=== PATIENT | female | born 1945 | race Caucasian/White ===

== ENCOUNTER 2020-06-09 17:14 | Inpatient (IN) | payer MEDICARE, OTHER, SELFPAY ==
[2020-06-09 17:24] VITALS: BP 137/76; PULSE 85; RESP 18; TEMP 36.7; O2SAT 98; BMI 25.0
--- NOTE | 2020-06-09 18:07 | DI.RAD.S_ITS ---
PROCEDURE: XR FOREARM RT 2V INDICATIONS: cat bite TECHNIQUE: 2 views of the forearm were acquired. COMPARISON: None. FINDINGS: Bones: No fractures or dislocations. No suspicious bony lesions. Soft tissues: No suspicious soft tissue calcifications or masses. IMPRESSION: No forearm fracture or dislocation. No radiopaque foreign body is seen. Dictated by: Ramiro Zamarripa M.D. on 06/09/2020 at 17:32 Approved by: Ramiro Zamarripa M.D. on 06/09/2020 at 17:33
[2020-06-09] MEDS: TET,DIPH,PERTUSS(ACELL),VAC/PF 0.5 ML SYRINGE IM (18:20)
[2020-06-09 18:36] LABS: Add Manual Diff / Slide Review NO; Basophils Absolute Auto 100 /uL (0-100); Basophils Percent Auto 0.7 % (0-2); Eosinophils Absolute Auto 0 /uL (0-450); Eosinophils Percent Auto 0.3 % (2-4); Hematocrit 38.8 % (36-46); Hemoglobin 13.2 g/dL (12.0-16.0); Lymphocytes Absolute Auto 1900 /uL (1100-4500); Lymphocytes Percent Auto 14.4 % (25-40); Mean Corpuscular HGB Conc 34.1 % (30-36); Mean Corpuscular Hemoglobin 31.6 PG (26-34); Mean Corpuscular Volume 92.9 fL (80-100); Monocytes Absolute Auto 1000 /uL (0-900); Monocytes Percent Auto 7.4 % (3-14); Neutrophils Absolute Auto 10300 /uL (1500-7000); Neutrophils Percent Auto 77.2 % (50-75); Platelet Count 177 X10^3/uL (150-400); Red Blood Cell Count 4.18 X10^6/uL (4.0-5.2); Red Cell Distribution Width 12.9 % (11.6-14.8); White Blood Cell Count 13.3 X10^3/uL (4.5-11.0)
[2020-06-09 18:52] LABS: Alanine Aminotransferase 31 IU/L (<35); Albumin 4.4 g/dL (3.5-5.0); Albumin Globulin Ratio 1.3 (1.0-2.8); Alkaline Phosphatase 83 U/L (38-126); Aspartate Aminotransferase 37 IU/L (14-36); BUN Creatinine Ratio 25.3 (6-22); Bilirubin Total 0.9 mg/dL (0.2-1.3); Blood Urea Nitrogen 19 mg/dL (7-17); Calcium 9.3 mg/dL (8.4-10.2); Carbon Dioxide 26 mmol/L (22-32); Chloride 101 mmol/L (98-107); Estimated Glomerular Filt Rate > 60.0 mL/min (>60); Globulin 3.5 g/dL (1.7-4.1); Glucose 103 mg/dL (80-110); HEMOLYSIS < 15 (0-50); Potassium 3.5 mmol/L (3.4-5.1); Sodium 135 mmol/L (137-145); Total Protein 7.9 g/dL (6.3-8.2)
[2020-06-09 18:54] LABS: Lactate (Lactic Acid) 0.6 mmol/L (0.7-2.1)
[2020-06-09] MEDS: SODIUM CHLORIDE 0.9% 1,000 ML 1000 ML IV (19:02)
[2020-06-09] MEDS: ONDANSETRON 4 MG/2 ML INJ IV (19:03)
[2020-06-09] MEDS: PIPERACILLIN-TAZO 3.375 GM/50 ML FROZ.PIGGY IV (19:03)
[2020-06-09] MEDS: KETOROLAC 60 MG/2 ML VIAL 30 MG IV (19:03)
--- NOTE | 2020-06-09 19:03 | PM.CN ---
History of Present Illness Consult details Date Patient Seen: 06/09/20 Time Patient Seen: 19:03 Chief complaint: lt hand infection from cat bite Reason for consult: left forearm cat bite Narrative: Patient is a 74-year-old female who was out her cabin in the [facility] when a cat bit her left forearm. She initially did not think much of it however after dinner yesterday she started having increasing pain and some erythema. This morning she woke up with quite a lot of erythema over the ulnar aspect of her forearm extending from her wrist to her elbow. She also notes decreased strength in her arm and pain with passive range of motion in the wrist and elbow. She denies any nausea vomiting fevers chills. Meds Home Medications and Allergies Home Medications Medication Instructions Recorded Confirmed Type No Known Home Medications 06/09/20 06/09/20 History Allergies Allergy/AdvReac Type Severity Reaction Status Date / Time No Known Drug Allergies Allergy Verified 06/09/20 17:26 Exam Vital Signs (past 8 hours): - 06/09/20 17:24 Temperature 98.1 F Pulse Rate 85 Respiratory Rate 18 Blood Pressure 137/76 Pulse Oximetry 98 Oxygen Delivery Method Room Air Narrative Exam Narrative: Three puncture wounds over the ulnar aspect of the left forearm. No drainage at this time. There is marked erythema over the ulnar aspect of her entire forearm extending from her wrist to her elbow. Tenderness to palpation. No fluctuance no active drainage. She does have some pain with extremes range of motion on the elbow and wrist however passive range of motion in a 45 degree arc of range of motion provides no increased pain. Objective Labs Result Diagrams: 06/09/20 18:15 06/09/20 18:15 Labs: Laboratory Results - last 24 hr 06/09/20 06/09/20 06/09/20 18:15 18:15 18:15 WBC 13.3 H RBC 4.18 Hgb 13.2 Hct 38.8 MCV 92.9 MCH 31.6 MCHC 34.1 RDW 12.9 Plt Count 177 Neut % (Auto) 77.2 H Lymph % (Auto) 14.4 L [place] % (Auto) 7.4 Eos % (Auto) 0.3 L Baso % (Auto) 0.7 Neut # (Auto) 72254 H Lymph # (Auto) 1900 [place] # (Auto) 1000 H Eos # (Auto) 0 Baso # (Auto) 100 Sodium 135 L Potassium 3.5 Chloride 101 Carbon Dioxide 26 BUN 19 H Creatinine 0.75 Estimated GFR > 60.0 BUN/Creatinine Ratio 25.3 H Glucose 103 Lactate 0.6 L Calcium 9.3 Total Bilirubin 0.9 AST 37 H ALT 31 Alkaline Phosphatase 83 Total Protein 7.9 Albumin 4.4 Globulin 3.5 Albumin/Globulin Ratio 1.3 Assessment & Plan Assessment & Plan narrative: Patient is a 74-year-old female with cellulitis related to a cat bite sustained more than 24 hours ago. She did not appear to have any sepsis within the tendon sheaths or in the joints themselves. She does have evolving celluliti. Patient will require admission for IV antibiotics and observation. Admit to Internal Medicine. Orthopedics will follow along. NPO after midnight Elevate left forearm with hylton sling Limit use of left forearm and wrist for soft tissue rest Augment abx - Consider IV Zosyn in addition Time Spent With Patient Time with patient: 25 - 35 minutes
[2020-06-09 19:08] LABS: Procalcitonin 0.17 ng/mL (<0.5)
[2020-06-09] MEDS: AMOXICILLIN/CLAV 875/125 MG 1 TAB PO (20:06)
[2020-06-09 20:45] LABS: COVID19 -Nasal RAPID Negative (Negative)
--- NOTE | 2020-06-09 20:48 | ED.SKABFB ---
HPI - Skin/Abscess/Foreign Bdy <INDIA Rodriguez - Last Filed: 06/09/20 21:02> General Chief complaint: Skin/Abscess/Foreign Body Stated complaint: lt hand infection from cat bite Time Seen by Provider: 06/09/20 17:59 Source: patient Mode of arrival: Ambulatory Limitations: no limitations History of Present Illness HPI narrative: The patient is a 74-year-old female nonsmoker with history of hysterectomy diverticulitis who presents with a chief complaint of a cat bite to her left forearm. This happened yesterday approximately 10:00 a.m. 1 of the [facility]. She does not know when her last tetanus was. She states her cat was fully vaccinated. She states that she noticed extending redness last night had pain above her shoulder this morning. She denies any fevers nausea vomiting or diarrhea, but does complain of malaise, muscle aches chills and general not feeling well. She is concerned about/infection andblood poisoning. She has not taken anything to feel better other than [id number] pain medications including 200 mg of ibuprofen this morning Related Data Home Medications Medication Instructions Recorded Confirmed No Known Home Medications 06/09/20 06/09/20 Allergies Allergy/AdvReac Type Severity Reaction Status Date / Time No Known Drug Allergies Allergy Verified 06/09/20 17:26 Review of Systems <INDIA Rodriguez - Last Filed: 06/09/20 21:02> Review of Systems Narrative: GENERAL: Denies chills, fatigue, malaise, fever, sweats. HEENT: Denies sinus pain, ear pain, sore throat, difficulty swallowing, dizziness. RESPIRATORY: Denies dyspnea, cough, wheezing, hemoptysis, sputum. CARDIOVASCULAR: Denies chest pain, palpitations, orthopnea, edema, GASTROINTESTINAL: Denies nausea, vomiting, abdominal pain, diarrhea, constipation, melena. : Denies dysuria, frequency, incontinence, hematuria, urinary retention. MUSCULOSKELETAL: See HPI SKIN: See HPI NEUROLOGIC: Denies weakness, headache, numbness, change in speech, confusion, seizures, incoordination. PSYCHIATRIC: No concerning psychosocial issues. 12 point review of systems is negative except for those stated above Patient History <INDIA Rodriguez - Last Filed: 06/09/20 21:02> Surgical History History of hysterectomy (Acute) History of vein stripping (Acute) Family History Father Myocardial infarction Mother Natural with unknown cause Social History Smoking Status: Never smoker Smoking Status: Never smoker alcohol intake frequency: 0-2 drinks per day Substance Use Type: does not use Exam <MAUREEN Rodriguez-BC - Last Filed: 06/09/20 21:02> Narrative Exam Narrative: GENERAL: This is a well-nourished, well-developed patient, in no acute distress HEAD: Atraumatic. Normocephalic. No temporal or scalp tenderness. EYES: Pupils equal round and reactive. Extraocular motions intact. No scleral icterus. No injection or drainage. ENT: Nose without bleeding, purulent drainage or septal hematoma. Throat without erythema, tonsillar hypertrophy or exudate. Uvula midline. Airway patent. NECK: Trachea midline. No JVD or lymphadenopathy. Supple, nontender, no meningeal signs. CARDIOVASCULAR: Regular rate and rhythm RESPIRATORY: Clear to auscultation. Breath sounds equal bilaterally. No wheezes, rales, or rhonchi. No cough. No increased respiratory effort. No accessory muscle use. GASTROINTESTINAL: Abdomen soft, non-tender, nondistended. No hepato-splenomegaly, or palpable masses. No guarding. EXTREMITIES: 3 puncture steve noted on ulnar aspect of left forearm, erythema extending down to wrist and up to shoulder, pain to palpation of left bicep. Pain with passive range of motion of right wrist. Positive right radial pulse. Capillary refill less than 2 seconds right hand., slight drainage noted at puncture steve. BACK: Nontender without deformity or crepitance. No flank tenderness. NEURO: AOx3. SKIN: See extremity exam Initial Vital Signs Initial Vital Signs: Vital Signs Temperature 98.1 F 06/09/20 17:24 Pulse Rate 85 06/09/20 17:24 Respiratory Rate 18 06/09/20 17:24 Blood Pressure 137/76 06/09/20 17:24 Pulse Oximetry 98 06/09/20 17:24 <Ottoniel Sethi DO - Last Filed: 06/10/20 01:14> Initial Vital Signs Initial Vital Signs: Vital Signs Temperature 98.1 F 06/09/20 17:24 Pulse Rate 85 06/09/20 17:24 Respiratory Rate 18 06/09/20 17:24 Blood Pressure 137/76 06/09/20 17:24 Pulse Oximetry 98 06/09/20 17:24 Course <Olinda HenaoMAUREEN-BC - Last Filed: 06/09/20 21:02> Orders Ordered: ED Orders 06/09/20 18:07 XR forearm LT 2V Stat 06/09/20 18:15 Complete Blood Count AUTO DIFF Stat Comprehensive Metabolic Panel Stat Lactate (Lactic Acid) Stat Procalcitonin Stat 06/09/20 18:30 Wound Culture and Gram Stain Stat 06/09/20 19:01 Blood Culture Stat 06/09/20 20:20 COVID19 -ED/INPAT/OR/L&D Stat Acetaminophen (Tylenol) 650 mg PO Q6HR PRN PRN Reason: Fever/Mild Pain (1-3) Last Admin: 06/09/20 21:26 Dose: 650 mg Documented by: ALANA Hydrocodone Bitart/Acetaminophen ([place] 5/325) 1 tab PO Q4HR PRN PRN Reason: Pain, Moderate (4-6) Last Admin: 06/09/20 21:27 Dose: 1 tab Documented by: ALANA Enoxaparin Sodium (Lovenox) 40 mg SUBCUT DAILY COURTNEY Piperacillin/Tazobactam/Dextrose (Zosyn) 3.375 gm in 50 mls @ 100 mls/hr IV Q6H COURTNEY Sodium Chloride (Normal Saline 0.9%) 1,000 mls @ 100 mls/hr IV CONT COURTNEY Last Admin: 06/10/20 00:14 Dose: 100 mls/hr Documented by: MARLYS Ibuprofen (Advil) 600 mg PO Q6HR PRN PRN Reason: Fever/Mild Pain (1-3) Last Admin: 06/10/20 00:30 Dose: 600 mg Documented by: MARLYS Naloxone HCl (Narcan) 0.2 mg IV Q2MIN PRN PRN Reason: Opiate Reversal Ondansetron HCl (Zofran Odt) 4 mg PO Q8HR PRN PRN Reason: Nausea And Vomiting Discontinued Medications Amoxicillin/Clavulanate Potassium (Augmentin 875-125 Mg) 1 tab PO NOW ONE Stop: 06/09/20 20:02 Last Admin: 06/09/20 20:06 Dose: 1 tab Documented by: LETICIA Amoxicillin/Clavulanate Potassium (Augmentin 875-125 Mg) 1 tab PO BID COURTNEY Diphtheria/Tetanus/Acell Pertussis (Adacel) 0.5 ml IM .ONCE ONE Stop: 06/09/20 18:07 Last Admin: 06/09/20 18:20 Dose: 0.5 ml Documented by: LETICIA Sodium Chloride (Normal Saline 0.9%) 1,000 mls @ 1,000 mls/hr IV BOLUS ONE Stop: 06/09/20 19:36 Last Infusion: 06/09/20 20:52 Dose: 0 mls/hr Documented by: Admin: 06/09/20 19:02 Dose: 1,000 mls/hr Documented by: ROD Piperacillin/Tazobactam/Dextrose (Zosyn) 3.375 gm in 50 mls @ 100 mls/hr IV NOW ONE Stop: 06/09/20 19:13 Last Infusion: 06/09/20 19:57 Dose: 0 mls/hr Documented by: Admin: 06/09/20 19:03 Dose: 100 mls/hr Documented by: ROD Ketorolac Tromethamine (Toradol) 30 mg IV NOW ONE Stop: 06/09/20 18:38 Last Admin: 06/09/20 19:03 Dose: 30 mg Documented by: ROD Ondansetron HCl (Zofran) 4 mg IV NOW ONE Stop: 06/09/20 18:38 Last Admin: 06/09/20 19:03 Dose: 4 mg Documented by: ROD Vital Signs Vital signs: Vital Signs - 8 hr 06/09/20 17:24 Temperature 98.1 F Pulse Rate 85 Respiratory Rate 18 Blood Pressure 137/76 Pulse Oximetry 98 <Ottoniel Sethi DO - Last Filed: 06/10/20 01:14> Orders Ordered: ED Orders 06/09/20 18:07 XR forearm LT 2V Stat 06/09/20 18:15 Complete Blood Count AUTO DIFF Stat Comprehensive Metabolic Panel Stat Lactate (Lactic Acid) Stat Procalcitonin Stat 06/09/20 18:30 Wound Culture and Gram Stain Stat 10/01/20 19:01 Blood Culture Stat 06/09/20 20:20 COVID19 -ED/INPAT/OR/L&D Stat Acetaminophen (Tylenol) 650 mg PO Q6HR PRN PRN Reason: Fever/Mild Pain (1-3) Last Admin: 06/09/20 21:26 Dose: 650 mg Documented by: ALANA Hydrocodone Bitart/Acetaminophen ([place] 5/325) 1 tab PO Q4HR PRN PRN Reason: Pain, Moderate (4-6) Last Admin: 06/09/20 21:27 Dose: 1 tab Documented by: ALANA Enoxaparin Sodium (Lovenox) 40 mg SUBCUT DAILY COURTNEY Piperacillin/Tazobactam/Dextrose (Zosyn) 3.375 gm in 50 mls @ 100 mls/hr IV Q6H COURTNEY Sodium Chloride (Normal Saline 0.9%) 1,000 mls @ 100 mls/hr IV CONT COURTNEY Last Admin: 06/10/20 00:14 Dose: 100 mls/hr Documented by: MARLYS Ibuprofen (Advil) 600 mg PO Q6HR PRN PRN Reason: Fever/Mild Pain (1-3) Last Admin: 06/10/20 00:30 Dose: 600 mg Documented by: MARLYS Naloxone HCl (Narcan) 0.2 mg IV Q2MIN PRN PRN Reason: Opiate Reversal Ondansetron HCl (Zofran Odt) 4 mg PO Q8HR PRN PRN Reason: Nausea And Vomiting Discontinued Medications Amoxicillin/Clavulanate Potassium (Augmentin 875-125 Mg) 1 tab PO NOW ONE Stop: 06/09/20 20:02 Last Admin: 06/09/20 20:06 Dose: 1 tab Documented by: LETICIA Amoxicillin/Clavulanate Potassium (Augmentin 875-125 Mg) 1 tab PO BID COURTNEY Diphtheria/Tetanus/Acell Pertussis (Adacel) 0.5 ml IM .ONCE ONE Stop: 06/09/20 18:07 Last Admin: 06/09/20 18:20 Dose: 0.5 ml Documented by: LETICIA Sodium Chloride (Normal Saline 0.9%) 1,000 mls @ 1,000 mls/hr IV BOLUS ONE Stop: 06/09/20 19:36 Last Infusion: 06/09/20 20:52 Dose: 0 mls/hr Documented by: Admin: 06/09/20 19:02 Dose: 1,000 mls/hr Documented by: ROD Piperacillin/Tazobactam/Dextrose (Zosyn) 3.375 gm in 50 mls @ 100 mls/hr IV NOW ONE Stop: 06/09/20 19:13 Last Infusion: 06/09/20 19:57 Dose: 0 mls/hr Documented by: Admin: 06/09/20 19:03 Dose: 100 mls/hr Documented by: ROD Ketorolac Tromethamine (Toradol) 30 mg IV NOW ONE Stop: 06/09/20 18:38 Last Admin: 06/09/20 19:03 Dose: 30 mg Documented by: ROD Ondansetron HCl (Zofran) 4 mg IV NOW ONE Stop: 06/09/20 18:38 Last Admin: 06/09/20 19:03 Dose: 4 mg Documented by: ROD Vital Signs Vital signs: Vital Signs - 8 hr 06/09/20 17:24 Temperature 98.1 F Pulse Rate 85 Respiratory Rate 18 Blood Pressure 137/76 Pulse Oximetry 98 MDM - Skin/Abscess/Foreign Bdy <MAUREEN Rodriguez-BC - Last Filed: 06/09/20 21:02> Lab Data Result diagrams: 06/09/20 18:15 06/09/20 18:15 Labs: Lab Results 06/09/20 06/09/20 06/09/20 Range/Units 18:15 18:15 18:15 WBC 13.3 H (4.5-11.0) X10^3/uL RBC 4.18 (4.0-5.2) X10^6/uL Hgb 13.2 (12.0-16.0) g/dL Hct 38.8 (36-46) % MCV 92.9 (80-100) fL MCH 31.6 (26-34) PG MCHC 34.1 (30-36) % RDW 12.9 (11.6-14.8) % Plt Count 177 (150-400) X10^3/uL Neut % (Auto) 77.2 H (50-75) % Lymph % (Auto) 14.4 L (25-40) % [place] % (Auto) 7.4 (3-14) % Eos % (Auto) 0.3 L (2-4) % Baso % (Auto) 0.7 (0-2) % Neut # (Auto) 25587 H (9529-9302) /uL Lymph # (Auto) 1900 (1841-8868) /uL [place] # (Auto) 1000 H (0-900) /uL Eos # (Auto) 0 (0-450) /uL Baso # (Auto) 100 (0-100) /uL Sodium 135 L (137-145) mmol/L Potassium 3.5 (3.4-5.1) mmol/L Chloride 101 (98-107) mmol/L Carbon Dioxide 26 (22-32) mmol/L BUN 19 H (7-17) mg/dL Creatinine 0.75 (0.52-1.04) mg/dL Estimated GFR > 60.0 (>60) mL/min BUN/Creatinine Ratio 25.3 H (6-22) Glucose 103 (80-110) mg/dL Lactate (0.7-2.1) mmol/L Calcium 9.3 (8.4-10.2) mg/dL Total Bilirubin 0.9 (0.2-1.3) mg/dL AST 37 H (14-36) IU/L ALT 31 (<35) IU/L Alkaline Phosphatase 83 (38-126) U/L Total Protein 7.9 (6.3-8.2) g/dL Albumin 4.4 (3.5-5.0) g/dL Globulin 3.5 (1.7-4.1) g/dL Albumin/Globulin Ratio 1.3 (1.0-2.8) Procalcitonin 0.17 (<0.5) ng/mL COVID-19 PCR (Negative) 06/09/20 06/09/20 Range/Units 18:15 20:20 WBC (4.5-11.0) X10^3/uL RBC (4.0-5.2) X10^6/uL Hgb (12.0-16.0) g/dL Hct (36-46) % MCV (80-100) fL MCH (26-34) PG MCHC (30-36) % RDW (11.6-14.8) % Plt Count (150-400) X10^3/uL Neut % (Auto) (50-75) % Lymph % (Auto) (25-40) % [place] % (Auto) (3-14) % Eos % (Auto) (2-4) % Baso % (Auto) (0-2) % Neut # (Auto) (3648-8801) /uL Lymph # (Auto) (4633-8688) /uL [place] # (Auto) (0-900) /uL Eos # (Auto) (0-450) /uL Baso # (Auto) (0-100) /uL Sodium (137-145) mmol/L Potassium (3.4-5.1) mmol/L Chloride (98-107) mmol/L Carbon Dioxide (22-32) mmol/L BUN (7-17) mg/dL Creatinine (0.52-1.04) mg/dL Estimated GFR (>60) mL/min BUN/Creatinine Ratio (6-22) Glucose (80-110) mg/dL Lactate 0.6 L (0.7-2.1) mmol/L Calcium (8.4-10.2) mg/dL Total Bilirubin (0.2-1.3) mg/dL AST (14-36) IU/L ALT (<35) IU/L Alkaline Phosphatase (38-126) U/L Total Protein (6.3-8.2) g/dL Albumin (3.5-5.0) g/dL Globulin (1.7-4.1) g/dL Albumin/Globulin Ratio (1.0-2.8) Procalcitonin (<0.5) ng/mL COVID-19 PCR Negative (Negative) Imaging Data Extremity x-ray #1: Radiologist's Impression: [address] [place] [id number] XRay Report Signed Patient: Wen Bender FMR#: [id number] : [id number]:[id number] Age/Sex: 74 / FDate of Service: 06/09/20 Loc: ED Accession Number: [id number] Procedure: XR forearm LT 2V Ordering Provider: Olinda Henao [facility]- PROCEDURE: XR FOREARM RT 2V INDICATIONS: cat bite TECHNIQUE: 2 views of the forearm were acquired. COMPARISON: None. FINDINGS: Bones: No fractures or dislocations. No suspicious bony lesions. Soft tissues: No suspicious soft tissue calcifications or masses. IMPRESSION: No forearm fracture or dislocation. No radiopaque foreign body is seen. Dictated by: Ramiro Zamarripa M.D. on 06/09/2020 at 17:32 Approved by: Ramiro Zamarripa M.D. on 06/09/2020 at 17:33 [facility] Narrative Medical decision making narrative: The patient is a 74-year-old female who presents today after a cat bite to her left forearm. Cat was vaccinated and her own. She has concerning extending redness since her injury. She also has slight drainage noted from her puncture wounds. Given her pain on passive range of motion, I spoke with Dr. Weiner from [facility] who went to evaluate the patient and will follow along with her hospital admission. Antibiotic treatment initiated with Augmentin and Zosyn IV per his instructions. Patient has slight leukocytosis, procalcitonin of 0.17, coronavirus negative. Spoke with nikki COOLEY who kindly admits the patient. Patient's tetanus was updated in the emergency department. Patient expresses gratitude for her care and her admission today. <Ottoniel Sethi, DO - Last Filed: 06/10/20 01:14> Lab Data Labs: Lab Results 06/09/20 06/09/20 06/09/20 Range/Units 18:15 18:15 18:15 WBC 13.3 H (4.5-11.0) X10^3/uL RBC 4.18 (4.0-5.2) X10^6/uL Hgb 13.2 (12.0-16.0) g/dL Hct 38.8 (36-46) % MCV 92.9 (80-100) fL MCH 31.6 (26-34) PG MCHC 34.1 (30-36) % RDW 12.9 (11.6-14.8) % Plt Count 177 (150-400) X10^3/uL Neut % (Auto) 77.2 H (50-75) % Lymph % (Auto) 14.4 L (25-40) % [place] % (Auto) 7.4 (3-14) % Eos % (Auto) 0.3 L (2-4) % Baso % (Auto) 0.7 (0-2) % Neut # (Auto) 88400 H (0261-4497) /uL Lymph # (Auto) 1900 (4860-0719) /uL [place] # (Auto) 1000 H (0-900) /uL Eos # (Auto) 0 (0-450) /uL Baso # (Auto) 100 (0-100) /uL Sodium 135 L (137-145) mmol/L Potassium 3.5 (3.4-5.1) mmol/L Chloride 101 (98-107) mmol/L Carbon Dioxide 26 (22-32) mmol/L BUN 19 H (7-17) mg/dL Creatinine 0.75 (0.52-1.04) mg/dL Estimated GFR > 60.0 (>60) mL/min BUN/Creatinine Ratio 25.3 H (6-22) Glucose 103 (80-110) mg/dL Lactate (0.7-2.1) mmol/L Calcium 9.3 (8.4-10.2) mg/dL Total Bilirubin 0.9 (0.2-1.3) mg/dL AST 37 H (14-36) IU/L ALT 31 (<35) IU/L Alkaline Phosphatase 83 (38-126) U/L Total Protein 7.9 (6.3-8.2) g/dL Albumin 4.4 (3.5-5.0) g/dL Globulin 3.5 (1.7-4.1) g/dL Albumin/Globulin Ratio 1.3 (1.0-2.8) Procalcitonin 0.17 (<0.5) ng/mL COVID-19 PCR (Negative) 06/09/20 06/09/20 Range/Units 18:15 20:20 WBC (4.5-11.0) X10^3/uL RBC (4.0-5.2) X10^6/uL Hgb (12.0-16.0) g/dL Hct (36-46) % MCV (80-100) fL MCH (26-34) PG MCHC (30-36) % RDW (11.6-14.8) % Plt Count (150-400) X10^3/uL Neut % (Auto) (50-75) % Lymph % (Auto) (25-40) % [place] % (Auto) (3-14) % Eos % (Auto) (2-4) % Baso % (Auto) (0-2) % Neut # (Auto) (0523-4078) /uL Lymph # (Auto) (8312-0432) /uL [place] # (Auto) (0-900) /uL Eos # (Auto) (0-450) /uL Baso # (Auto) (0-100) /uL Sodium (137-145) mmol/L Potassium (3.4-5.1) mmol/L Chloride (98-107) mmol/L Carbon Dioxide (22-32) mmol/L BUN (7-17) mg/dL Creatinine (0.52-1.04) mg/dL Estimated GFR (>60) mL/min BUN/Creatinine Ratio (6-22) Glucose (80-110) mg/dL Lactate 0.6 L (0.7-2.1) mmol/L Calcium (8.4-10.2) mg/dL Total Bilirubin (0.2-1.3) mg/dL AST (14-36) IU/L ALT (<35) IU/L Alkaline Phosphatase (38-126) U/L Total Protein (6.3-8.2) g/dL Albumin (3.5-5.0) g/dL Globulin (1.7-4.1) g/dL Albumin/Globulin Ratio (1.0-2.8) Procalcitonin (<0.5) ng/mL COVID-19 PCR Negative (Negative) Discharge Plan Departure Patient Disposition: Admitted As Inpatient Clinical Impression: Cellulitis Qualifiers: Site of cellulitis: extremity Site of cellulitis of extremity: upper extremity Laterality: left Qualified Code(s): L03.114 - Cellulitis of left upper limb Cat bite Qualifiers: Encounter type: initial encounter Qualified Code(s): W55.01XA - Bitten by cat, initial encounter Discharge Date/Time: 06/09/20 20:57 Admit Date/Time: 06/09/20 20:23 Admit Provider: Gay Devine <Ottoniel Sethi DO - Last Filed: 06/10/20 01:14> Cosign ED Attending Coskarimeature Attestation: I was immediately available in the department for consultation. This documentation has been reviewed and I agree with assessment and plan. Supervised by Ottoniel Sethi DO
[2020-06-09 21:00] VITALS: BP 133/73; PULSE 93; RESP 17; TEMP 37.6; O2SAT 93
[2020-06-09] MEDS: ACETAMINOPHEN 325 MG TABLET 650 MG PO (21:26)
[2020-06-09] MEDS: HYDROCODONE/ACET 5/325 TABLET 1 TAB PO (21:27)
[2020-06-09 21:31] VITALS: BMI 25.0
--- NOTE | 2020-06-09 23:02 | PM.HP.1 ---
History of Present Illness History of Present Illness Date Patient Seen: 06/09/20 Time Patient Seen: 21:00 Chief complaint: lt hand infection from cat bite Narrative: Yulia Carver is a 74 y.o. female visiting [facility] with no stated medical conditions at her [place] was packing up when a neighbor's dog approached her cat. She lives in [facility]. She went out, picked up her cat, and with the cat being upset at the dog, bit her in the left lower arm yesterday. She did not think anything of it. She soaked it in warm water and said that pus came out of one of the puncture sites. When she woke up this morning, her arm was very swollen. She has difficulty flexing her wrist and is concerned about reddening in her anticubital area. She became nauseous and was requesting something upon presentation to the ED. She denies a fever, but has had chills and was complaining of being cold during my visit with her. Denies shortness of breath, chest pain, dysurea, diarrhea or constipation. In the ED, Dr. Weiner was consulted and he recommended the patient receive both Zosyn and Augmentin. She was administered a Tdap vaccination, and administered both IV Zosyn and oral Augmentin She is mildly febrile at 99.7, blood pressure 133/73, heart rate 93, respiratory rate 17, oxygen saturation 93% on room air, she weighs 68 kg, and has a BMI of 25. She has a mildly elevated white count of 13.3, with a left shift, sodium 135, potassium 3.5, chloride 101, CO2 26, creatinine 0.75, GFR screen to 60, lactate is negative at 0.6, liver enzymes are within normal limits, procalcitonin is negative at 0.17, and COVID-19 is negative. Patient History Surgical History History of hysterectomy (Acute) History of vein stripping (Acute) Family & Social History Family History Father Myocardial infarction Mother Natural with unknown cause Safety & Behavioral: Feels Safe in Current Yes Environment Been Physically Hurt or No Threatened By a Person Suicidal Ideation Description None Suicide Plan Description No Plan Tobacco & Substance use: Smoking Status Never smoker alcohol intake frequency 0-2 drinks per day Substance Use Type does not use Meds Home Medications and Allergies Home Medications Medication Instructions Recorded Confirmed Type No Known Home Medications 06/09/20 06/09/20 History Allergies Allergy/AdvReac Type Severity Reaction Status Date / Time No Known Drug Allergies Allergy Verified 06/09/20 17:26 Review of Systems Review of Systems ROS: Yes All systems reviewed with the patient and are negative except as otherwise documented Exam Vital Signs (past 8 hours): - 06/09/20 17:24 06/09/20 21:00 Temperature 98.1 F 99.7 F H Pulse Rate 85 93 H Respiratory Rate 18 17 Blood Pressure 137/76 133/73 Pulse Oximetry 98 93 Oxygen Delivery Method Room Air Narrative Exam Narrative: Gen: Alert, oriented, well-developed 74 y.o. female, mildly uncomfortable HEENT: normocephalic, atraumatic, conjunctiva clear, sclera non-icteric, oral mucosa pink and moist Neck: supple, full ROM, no JVD, trachea is midline Resp: Lungs CTA, non-labored breathing CV: RRR, no murmur or rubs Abd: soft, non-tender, normoactive BTs Skin: multiple small puncture sites on lower left arm, mild and generalized induration, swelling and erythema of whole lower arm, appears to have a rash forming around both sides of her neck Neuro: Alert and oriented X 4 w/no focal deficits. Speech clear and coherent. Extremities: unable to flex left wrist, is ambulatory, negative Radha?s sign Psyche: normal mood and affect. Objective Labs Result Diagrams: 06/09/20 18:15 06/09/20 18:15 Labs: Laboratory Results - last 24 hr 06/09/20 06/09/20 06/09/20 18:15 18:15 18:15 WBC 13.3 H RBC 4.18 Hgb 13.2 Hct 38.8 MCV 92.9 MCH 31.6 MCHC 34.1 RDW 12.9 Plt Count 177 Neut % (Auto) 77.2 H Lymph % (Auto) 14.4 L [place] % (Auto) 7.4 Eos % (Auto) 0.3 L Baso % (Auto) 0.7 Neut # (Auto) 52846 H Lymph # (Auto) 1900 [place] # (Auto) 1000 H Eos # (Auto) 0 Baso # (Auto) 100 Sodium 135 L Potassium 3.5 Chloride 101 Carbon Dioxide 26 BUN 19 H Creatinine 0.75 Estimated GFR > 60.0 BUN/Creatinine Ratio 25.3 H Glucose 103 Lactate Calcium 9.3 Total Bilirubin 0.9 AST 37 H ALT 31 Alkaline Phosphatase 83 Total Protein 7.9 Albumin 4.4 Globulin 3.5 Albumin/Globulin Ratio 1.3 Procalcitonin 0.17 COVID-19 PCR 06/09/20 06/09/20 18:15 20:20 WBC RBC Hgb Hct MCV MCH MCHC RDW Plt Count Neut % (Auto) Lymph % (Auto) [place] % (Auto) Eos % (Auto) Baso % (Auto) Neut # (Auto) Lymph # (Auto) [place] # (Auto) Eos # (Auto) Baso # (Auto) Sodium Potassium Chloride Carbon Dioxide BUN Creatinine Estimated GFR BUN/Creatinine Ratio Glucose Lactate 0.6 L Calcium Total Bilirubin AST ALT Alkaline Phosphatase Total Protein Albumin Globulin Albumin/Globulin Ratio Procalcitonin COVID-19 PCR Negative Assessment & Plan Assessment & Plan narrative: Wen Bender is admitted for inpatient administration of IV antibiotics to treat and monitor a cellulitis of her left arm. Cellulitis of the left arm due to a cat bite, acute and present on admission -She will be continued on IV Zosyn, pharmacy recommend discontinuance of Augmentin as it is duplicate coverage and would be more appropriate for when she is discharged -Monitor for beta lactamase allergy -Consider MRI if patient is unable to regain mobility of her wrist -Dr. Weiner consulted VTE prophylaxis: Wells risk score: 0 Enoxaparin 40 mg subQ daily Consults: Dr. Weiner, Orthopedic surgery consult and involvement is appreciated. Patient is admitted under inpatient status with expected length of stay greater than 2 midnights due to severity of presenting symptoms, risk of adverse event, and complexity of treatment plan. FEN: Low sodium diet, NS at 100 ml/hour, BMP and magnesium in the am. Dispo: probable discharge to home Code Status: Full code as discussed with patient Scores Wells' Criteria for PE Clinical signs and symptoms of DVT: No PE is #1 Dx or equally likely: No Heart rate > 100: No Immobilization at least 3 days or surg in previous 4 weeks: No History of PE or DVT: No Hemoptysis: No Malignancy w/Treatment within 6 months or palliative: No Wells' PE Score total: 0 Quality VTE Deep Vein Thrombosis/Pulmonary Embolism Present on Admission: No
[2020-06-09 23:49] VITALS: BP 95/42; PULSE 76; RESP 16; TEMP 36.1; O2SAT 97
[2020-06-10] VITALS (10 sets, daily range): BP systolic 107–135; BP diastolic 48–95; PULSE 64–86; RESP 16–20; TEMP 36.1–37.2; O2SAT 97–100
[2020-06-10] MEDS: SODIUM CHLORIDE 0.9% 1,000 ML 100 ML IV ×2 (00:14→10:34)
[2020-06-10] MEDS: IBUPROFEN 600 MG TABLET PO ×3 (00:30→21:04)
[2020-06-10] MEDS: PIPERACILLIN-TAZO 3.375 GM/50 ML FROZ.PIGGY IV ×3 (01:38→12:43)
[2020-06-10 05:55] LABS: Add Manual Diff / Slide Review NO; Basophils Absolute Auto 0 /uL (0-100); Basophils Percent Auto 0.3 % (0-2); Eosinophils Absolute Auto 100 /uL (0-450); Eosinophils Percent Auto 1.3 % (2-4); Hematocrit 34.3 % (36-46); Hemoglobin 11.6 g/dL (12.0-16.0); Lymphocytes Absolute Auto 1700 /uL (1100-4500); Lymphocytes Percent Auto 19.6 % (25-40); Mean Corpuscular HGB Conc 33.7 % (30-36); Mean Corpuscular Hemoglobin 31.9 PG (26-34); Mean Corpuscular Volume 94.6 fL (80-100); Monocytes Absolute Auto 700 /uL (0-900); Monocytes Percent Auto 8.2 % (3-14); Neutrophils Absolute Auto 6200 /uL (1500-7000); Neutrophils Percent Auto 70.6 % (50-75); Platelet Count 143 X10^3/uL (150-400); Red Blood Cell Count 3.63 X10^6/uL (4.0-5.2); Red Cell Distribution Width 13.1 % (11.6-14.8); White Blood Cell Count 8.7 X10^3/uL (4.5-11.0)
[2020-06-10] MEDS: HYDROCODONE/ACET 5/325 TABLET 1 TAB PO (05:57)
[2020-06-10 06:05] LABS: BUN Creatinine Ratio 21.7 (6-22); Blood Urea Nitrogen 18 mg/dL (7-17); Calcium 8.5 mg/dL (8.4-10.2); Carbon Dioxide 26 mmol/L (22-32); Chloride 107 mmol/L (98-107); Estimated Glomerular Filt Rate > 60.0 mL/min (>60); Glucose 114 mg/dL (80-110); HEMOLYSIS < 15 (0-50); Magnesium 2.2 mg/dL (1.6-2.3); Potassium 3.9 mmol/L (3.4-5.1); Sodium 136 mmol/L (137-145)
--- NOTE | 2020-06-10 08:06 | PM.PN.1 ---
Subjective Subjective Date Patient Seen: 06/10/20 Time Patient Seen: 08:06 Interval history: Improved pain overnight. Improved erythema over the ulnar aspect of the forearm. Slight increased erythema in the antecubuital fossa. Overall feeling better than yesterday Exam Vital Signs (past 8 hours): - 06/10/20 00:30 06/10/20 06:00 Temperature 97.7 F Pulse Rate 64 Respiratory Rate 16 Blood Pressure 126/70 Pulse Oximetry 97 100 Oxygen Delivery Method Room Air Oxygen Flow Rate 0 Narrative Exam Narrative: Improving erythema over the ulanr aspect of the forearm, erythema is receeded from the tracing of the erythema from yesterday. Slight shift in erythema in the antecubital fossa, improved elbow and wrist ROM compared to yesterday. No drainage Objective Labs Result Diagrams: 06/10/20 05:30 06/10/20 05:30 Labs: Laboratory Results - last 24 hr 06/09/20 06/09/20 06/09/20 18:15 18:15 18:15 WBC 13.3 H RBC 4.18 Hgb 13.2 Hct 38.8 MCV 92.9 MCH 31.6 MCHC 34.1 RDW 12.9 Plt Count 177 Neut % (Auto) 77.2 H Lymph % (Auto) 14.4 L [place] % (Auto) 7.4 Eos % (Auto) 0.3 L Baso % (Auto) 0.7 Neut # (Auto) 96749 H Lymph # (Auto) 1900 [place] # (Auto) 1000 H Eos # (Auto) 0 Baso # (Auto) 100 Sodium 135 L Potassium 3.5 Chloride 101 Carbon Dioxide 26 BUN 19 H Creatinine 0.75 Estimated GFR > 60.0 BUN/Creatinine Ratio 25.3 H Glucose 103 Lactate Calcium 9.3 Magnesium Total Bilirubin 0.9 AST 37 H ALT 31 Alkaline Phosphatase 83 Total Protein 7.9 Albumin 4.4 Globulin 3.5 Albumin/Globulin Ratio 1.3 Procalcitonin 0.17 COVID-19 PCR 06/09/20 06/09/20 06/10/20 18:15 20:20 05:30 WBC 8.7 RBC 3.63 L Hgb 11.6 L Hct 34.3 L MCV 94.6 MCH 31.9 MCHC 33.7 RDW 13.1 Plt Count 143 L Neut % (Auto) 70.6 Lymph % (Auto) 19.6 L [place] % (Auto) 8.2 Eos % (Auto) 1.3 L Baso % (Auto) 0.3 Neut # (Auto) 6200 Lymph # (Auto) 1700 [place] # (Auto) 700 Eos # (Auto) 100 Baso # (Auto) 0 Sodium Potassium Chloride Carbon Dioxide BUN Creatinine Estimated GFR BUN/Creatinine Ratio Glucose Lactate 0.6 L Calcium Magnesium Total Bilirubin AST ALT Alkaline Phosphatase Total Protein Albumin Globulin Albumin/Globulin Ratio Procalcitonin COVID-19 PCR Negative 06/10/20 05:30 WBC RBC Hgb Hct MCV MCH MCHC RDW Plt Count Neut % (Auto) Lymph % (Auto) [place] % (Auto) Eos % (Auto) Baso % (Auto) Neut # (Auto) Lymph # (Auto) [place] # (Auto) Eos # (Auto) Baso # (Auto) Sodium 136 L Potassium 3.9 Chloride 107 Carbon Dioxide 26 BUN 18 H Creatinine 0.83 Estimated GFR > 60.0 BUN/Creatinine Ratio 21.7 Glucose 114 H Lactate Calcium 8.5 Magnesium 2.2 Total Bilirubin AST ALT Alkaline Phosphatase Total Protein Albumin Globulin Albumin/Globulin Ratio Procalcitonin COVID-19 PCR Assessment & Plan Assessment & Plan narrative: Patient is a 74 yo F who was bitten by a cat 2 days ago. She presented to the ED yesterday with forearm and antecubital fossa swelling and erythema. She has been on oral and IV abx overnight. She has had improvement of symptoms although the erythema in the antecubital fossa remains worrisome. Will continue to monitor closely. - continue abx - remain for continued observation for another 24 hours at least - Elevate arm Time Spent With Patient Time with patient: less than 15 minutes Quality VTE Deep Vein Thrombosis/Pulmonary Embolism Present on Admission: No
[2020-06-10] MEDS: ENOXAPARIN 40 MG/0.4 ML SYRINGE SUBCUT (08:13)
[2020-06-10 08:53] LABS: Procalcitonin 0.14 ng/mL (<0.5)
--- NOTE | 2020-06-10 11:22 | PM.PN.1 ---
Subjective Subjective Date Patient Seen: 06/10/20 Interval history: Wen Bender is a 74-year-old female with no significant past medical history who presented to the ED after sustaining accidental cat bite with left arm pain, decreased range of motion and purulent cellulitis. The patient is resting in bed comfortably. She is highly anxious. Discussed cellulitis and her left arm infection in detail and answered all of her questions. She endorsed mild headache and nausea this morning that have resolved. She continues to have mild tenderness to palpation of left arm. Her range of motion is improving and her cellulitis is retracting in previously outlined margins other than antecubital fossa. She has no other complaints and denies headache, cough, shortness of breath, chest pain, abdominal pain, nausea, vomiting, fever, chills, dysuria, diarrhea or constipation. Recommended she continue to rest her left arm, frequently ice and elevate. She is voiding without difficulty. She has a history of constipation especially with pain medications and requests stool softener. She is up ambulating without assistance. Exam Vital Signs (past 8 hours): - 06/10/20 06:00 06/10/20 07:49 06/10/20 08:00 Temperature 97.7 F 97.0 F L 99.0 F Pulse Rate 64 70 77 Respiratory Rate 16 16 20 Blood Pressure 126/70 107/48 L 107/60 Pulse Oximetry 100 98 98 06/10/20 10:25 Temperature Pulse Rate Respiratory Rate Blood Pressure Pulse Oximetry 98 Oxygen Delivery Method Room Air Oxygen Flow Rate 0 Narrative Exam Narrative: General: Older female lying in bed and in no acute distress, well-developed, well-nourished, highly anxious but otherwise appropriately interactive. HEENT: Normocephalic, atraumatic. External ears without defect. Pupils equal, round, and reactive to light. Anicteric sclerae, moist conjunctivae, and no lid lag. Oropharynx free of erythema and cobble stoning with moist mucosa. Neck: Supple with full range of motion. No jugular venous distension. No lymphadenopathy or thyromegaly. Cardiovascular: Regular rate and rhythm without murmurs, rubs, or gallops appreciated Pulmonary: Clear to auscultation bilaterally without crackles, wheezes, or rhonchi. Normal respiratory effort with no use of accessory muscles. Abdomen: Soft, bowel sounds present, nontender, nondistended. No hepatosplenomegaly or masses appreciated. Extremities: No clubbing, cyanosis, or edema of other extremity. Left arm with cellulitis and warmth, erythema and edema that is retracting within previously outlined margins but slightly worsened at antecubital fossa. Two puncture wounds at posterior medial forearm. Scratch on left side of neck that does not appear infected. Range of motion improving. No pain out of proportion to exam or with passive and active range of motion. Skin: Normal temperature, turgor, and texture; no rash, ulcers, or subcutaneous nodules appreciated. Neurological: Cranial nerves grossly intact. Psychiatric: Highly anxious mood and affect. Alert and oriented to person, place, and time. Objective Labs Result Diagrams: 06/10/20 05:30 06/10/20 05:30 Labs: Laboratory Results - last 24 hr 06/09/20 06/09/20 06/09/20 18:15 18:15 18:15 WBC 13.3 H RBC 4.18 Hgb 13.2 Hct 38.8 MCV 92.9 MCH 31.6 MCHC 34.1 RDW 12.9 Plt Count 177 Neut % (Auto) 77.2 H Lymph % (Auto) 14.4 L [place] % (Auto) 7.4 Eos % (Auto) 0.3 L Baso % (Auto) 0.7 Neut # (Auto) 53709 H Lymph # (Auto) 1900 [place] # (Auto) 1000 H Eos # (Auto) 0 Baso # (Auto) 100 Sodium 135 L Potassium 3.5 Chloride 101 Carbon Dioxide 26 BUN 19 H Creatinine 0.75 Estimated GFR > 60.0 BUN/Creatinine Ratio 25.3 H Glucose 103 Lactate Calcium 9.3 Magnesium Total Bilirubin 0.9 AST 37 H ALT 31 Alkaline Phosphatase 83 Total Protein 7.9 Albumin 4.4 Globulin 3.5 Albumin/Globulin Ratio 1.3 Procalcitonin 0.17 COVID-19 PCR 06/09/20 06/09/20 06/10/20 18:15 20:20 05:26 WBC RBC Hgb Hct MCV MCH MCHC RDW Plt Count Neut % (Auto) Lymph % (Auto) [place] % (Auto) Eos % (Auto) Baso % (Auto) Neut # (Auto) Lymph # (Auto) [place] # (Auto) Eos # (Auto) Baso # (Auto) Sodium Potassium Chloride Carbon Dioxide BUN Creatinine Estimated GFR BUN/Creatinine Ratio Glucose Lactate 0.6 L Calcium Magnesium Total Bilirubin AST ALT Alkaline Phosphatase Total Protein Albumin Globulin Albumin/Globulin Ratio Procalcitonin 0.14 COVID-19 PCR Negative 06/10/20 06/10/20 05:30 05:30 WBC 8.7 RBC 3.63 L Hgb 11.6 L Hct 34.3 L MCV 94.6 MCH 31.9 MCHC 33.7 RDW 13.1 Plt Count 143 L Neut % (Auto) 70.6 Lymph % (Auto) 19.6 L [place] % (Auto) 8.2 Eos % (Auto) 1.3 L Baso % (Auto) 0.3 Neut # (Auto) 6200 Lymph # (Auto) 1700 [place] # (Auto) 700 Eos # (Auto) 100 Baso # (Auto) 0 Sodium 136 L Potassium 3.9 Chloride 107 Carbon Dioxide 26 BUN 18 H Creatinine 0.83 Estimated GFR > 60.0 BUN/Creatinine Ratio 21.7 Glucose 114 H Lactate Calcium 8.5 Magnesium 2.2 Total Bilirubin AST ALT Alkaline Phosphatase Total Protein Albumin Globulin Albumin/Globulin Ratio Procalcitonin COVID-19 PCR Assessment & Plan Assessment & Plan narrative: Wen Bender is a 74-year-old female with no significant past medical history who presented to the ED after sustaining accidental cat bite with left arm pain, decreased range of motion and purulent cellulitis. 1. Acute left arm cellulitis, secondary to cat bite, present on admission. Active. -Patient presented with left arm pain, decreased range of motion and cellulitis after she sustained an accidental cat bite. -Initial WBC 13.3 and normalized now 8.7. Initial procalcitonin negative at 0.17 and trending down. Continue to monitor WBC daily. -Initial wound cultures preliminarily growing gram-negative bacilli. Blood cultures x2 have no growth to date. -Left arm x-ray did not demonstrate any no forearm fracture or dislocation, radiopaque foreign body or subcutaneous gas. Could consider CT or MRI if cellulitis or range of motion worsening. -Continue Zosyn 3.375 g every 6 hours and added doxycycline 100 mg twice daily to treat pasteurella, Bartonella henselae and other Gram-negative organisms. -Consulted orthopedic surgery, Dr. Weiner, and we appreciate his time and recommendations. -Continue supportive care with rest and limits patient of movement, frequent icing, elevation with hylton sling, and symptom control with antiemetics and pain medications. Code Status: Full code VTE prophylaxis: Enoxaparin, SCDs Disposition: Patient likely to discharge home in 1-2 days once infection improving. Quality VTE Deep Vein Thrombosis/Pulmonary Embolism Present on Admission: No
[2020-06-10] MEDS: DOXYCYCLINE HYCLATE 100 MG TABLET PO ×2 (12:13→21:01)
--- NOTE | 2020-06-10 13:00 | DI.MRI.S_ITS ---
PROCEDURE: MR HUMERUS LT WO CON INDICATIONS: cat bite, left arm cellulitis TECHNIQUE: Noncontrast coronal and sagittal T1 spin echo and STIR; axial T1 spin echo and T2 fast spin echo with fat saturation through the left humerus/upper arm. COMPARISON: None. FINDINGS: Image quality: Excellent. Bones: The visualized bone marrow demonstrates normal signal on all sequences. The overlying cortex appears intact. No fractures lines or intra-osseous lesions. Soft tissues: The scanned muscles demonstrate normal overall bulk and internal signal. Extensive subcutaneous soft tissue edema and swelling along dorsal aspect of distal forearm and elbow joint is seen. No discrete abscess collection is noted. IMPRESSION: 1. Extensive cellulitis in dorsal aspect of distal upper arm/elbow joint. No discrete abscess collection. No underlying muscle involvement. Visualized distal triceps tendon is intact. 2. No marrow signal abnormality. No fracture or dislocation. No evidence of osteomyelitis. Dictated by: Ramiro Zamarripa M.D. on 06/10/2020 at 14:42 Approved by: Ramiro Zamarripa M.D. on 06/10/2020 at 14:46
--- NOTE | 2020-06-10 13:43 | CM.DANOTE ---
Discharge Planning/Care Management DCP: assessment: case received, EMR reviewed and met with pt during Team Bedside Rounds. Introduced self and role. Pt is a 74 year old female who lives with her in [facility]. They spend painter at their cabin in the [facility] and also have friends in [place] with a guest house where they stay. Pt has admitted with a cat bite from family pet. Admitted to hospitalist team. Consulting: Dr. Weiner/NATA Rivero. Payer: Medicare and [facility] Medical Admission status: INPT/confirmed by UR RN Kendall Pt is expected to be on IV anibiotics for the next few days with Dr. Weiner and partners watching over the R arm closely. Pt notes she had no idea that a cat bit could be so virulent. I am glad I came to the hospital as quickly as I did. At this point anticipate pt will d/c to a home setting with her when stable for same and on oral antibiotics but will be following as POC unfolds to assist with any d/c needs that may arise. CM Discharge Assessment Start: 06/10/20 13:41 Freq: Status: Active Protocol: Document 06/10/20 13:42 ITV (Rec: 06/10/20 13:42 ITV [id number]) Discharge Planning Assessment Advance Directives? No History Provided By Patient,Medical Record Independent with ADL's Yes Is patient alert and oriented? Yes Review Status In Process
[2020-06-10] MEDS: diazePAM 5 MG TABLET PO (14:41)
[2020-06-10] MEDS: DOCUSATE 100 MG CAPSULE PO (21:01)
[2020-06-10] MEDS: AMOXICILLIN/CLAV 875/125 MG 1 TAB PO (21:02)
[2020-06-10] MEDS: MELATONIN 3 MG TABLET 9 MG PO (21:53)
--- NOTE | 2020-06-10 22:16 | PC.NURSE ---
Pt is A and O x 4, VSS, afebrile. Pain is 4-5/10, greater with movement. Arm is elevated and iced. She has had 500 mg Ibuprofen po x 1. She is I in room and eating, drinking, voiding and has + BTs. LS clear, S1, S2. Had a shower.
[2020-06-11] VITALS (9 sets, daily range): BP systolic 112–152; BP diastolic 68–90; PULSE 70–92; RESP 16–18; TEMP 36.6–37.3; O2SAT 98–100
[2020-06-11] MEDS: SODIUM CHLORIDE 0.9% 1,000 ML 100 ML IV (00:43)
--- NOTE | 2020-06-11 01:36 | PC.NURSE ---
Pt resting comfortably. Notes ice placed on L FA almost completely relieves any discomfort. Margins around erythemia at anticubital area remarked. Pt c/o of some tingling in L hand that was relieved w/movement. Will continue to monitor.
[2020-06-11 05:43] LABS: Add Manual Diff / Slide Review NO; Basophils Absolute Auto 0 /uL (0-100); Basophils Percent Auto 0.5 % (0-2); Eosinophils Absolute Auto 200 /uL (0-450); Eosinophils Percent Auto 3.7 % (2-4); Hematocrit 35.6 % (36-46); Hemoglobin 11.9 g/dL (12.0-16.0); Lymphocytes Absolute Auto 1500 /uL (1100-4500); Lymphocytes Percent Auto 26.5 % (25-40); Mean Corpuscular HGB Conc 33.4 % (30-36); Mean Corpuscular Hemoglobin 31.7 PG (26-34); Mean Corpuscular Volume 94.9 fL (80-100); Monocytes Absolute Auto 600 /uL (0-900); Monocytes Percent Auto 9.9 % (3-14); Neutrophils Absolute Auto 3400 /uL (1500-7000); Neutrophils Percent Auto 59.4 % (50-75); Platelet Count 145 X10^3/uL (150-400); Red Blood Cell Count 3.75 X10^6/uL (4.0-5.2); Red Cell Distribution Width 13.1 % (11.6-14.8); White Blood Cell Count 5.8 X10^3/uL (4.5-11.0)
[2020-06-11 05:58] LABS: BUN Creatinine Ratio 23.4 (6-22); Blood Urea Nitrogen 15 mg/dL (7-17); Calcium 8.6 mg/dL (8.4-10.2); Carbon Dioxide 25 mmol/L (22-32); Chloride 112 mmol/L (98-107); Estimated Glomerular Filt Rate > 60.0 mL/min (>60); Glucose 113 mg/dL (80-110); HEMOLYSIS < 15 (0-50); Magnesium 1.9 mg/dL (1.6-2.3); Potassium 4.5 mmol/L (3.4-5.1); Sodium 139 mmol/L (137-145)
[2020-06-11 06:09] LABS: Procalcitonin 0.08 ng/mL (<0.5)
[2020-06-11] MEDS: AMOXICILLIN/CLAV 875/125 MG 1 TAB PO ×2 (08:44→20:55)
[2020-06-11] MEDS: DOXYCYCLINE HYCLATE 100 MG TABLET PO ×2 (08:44→20:56)
[2020-06-11] MEDS: DOCUSATE 100 MG CAPSULE PO (08:44)
[2020-06-11] MEDS: ENOXAPARIN 40 MG/0.4 ML SYRINGE SUBCUT (08:44)
--- NOTE | 2020-06-11 08:49 | P.PN_ITS ---
Subjective Subjective Date Patient Seen: 06/11/20 Time Patient Seen: 08:49 Interval history: Starting to feel better today. Less pain in antecubital fossa. Continued erythema in the ulnar aspect of the forearm as well as the antecubital fossa. Slight resolving of erythema. MRI of upper arm demonstrates no abscess, unable to complete exam due to claustrophobia. Exam Vital Signs (past 8 hours): - 06/11/20 04:20 06/11/20 08:41 Temperature 98.4 F Pulse Rate 70 Respiratory Rate 16 Blood Pressure 123/75 Pulse Oximetry 100 100 Oxygen Delivery Method Room Air Oxygen Flow Rate 0 Narrative Exam Narrative: NV intact in LUE, 3 puncture wound to ulnar aspect of forearm without drainage. Erythema to ular aspect of forearm and antecubital fossa, border marked out in pen. Improving ROM of the elbow and wrist. Objective Labs Result Diagrams: 06/11/20 05:22 06/11/20 05:22 Labs: Laboratory Results - last 24 hr 06/10/20 06/11/20 06/11/20 05:26 05:22 05:22 WBC 5.8 RBC 3.75 L Hgb 11.9 L Hct 35.6 L MCV 94.9 MCH 31.7 MCHC 33.4 RDW 13.1 Plt Count 145 L Neut % (Auto) 59.4 Lymph % (Auto) 26.5 [place] % (Auto) 9.9 Eos % (Auto) 3.7 Baso % (Auto) 0.5 Neut # (Auto) 3400 Lymph # (Auto) 1500 [place] # (Auto) 600 Eos # (Auto) 200 Baso # (Auto) 0 Sodium 139 Potassium 4.5 Chloride 112 H Carbon Dioxide 25 BUN 15 Creatinine 0.64 Estimated GFR > 60.0 BUN/Creatinine Ratio 23.4 H Glucose 113 H Calcium 8.6 Magnesium 1.9 Procalcitonin 0.14 06/11/20 05:22 WBC RBC Hgb Hct MCV MCH MCHC RDW Plt Count Neut % (Auto) Lymph % (Auto) [place] % (Auto) Eos % (Auto) Baso % (Auto) Neut # (Auto) Lymph # (Auto) [place] # (Auto) Eos # (Auto) Baso # (Auto) Sodium Potassium Chloride Carbon Dioxide BUN Creatinine Estimated GFR BUN/Creatinine Ratio Glucose Calcium Magnesium Procalcitonin 0.08 Assessment & Plan Assessment & Plan narrative: Patient is a 74 yo F who was bitten by a cat 3 days ago. She presented to the ED with forearm and antecubital fossa swelling and mohsen thema. She has been on abx since admission. She has had improvement of symptoms although the erythema in the antecubital fossa and the ulnar aspect of the forearm remains worrisome. Will continue to monitor closely. I would recommend completion of the MRI study that was started yesterday. - continue augmentin - remain for continued observation for another 24 hours at least - Elevate arm - NPO until completed forearm MRI reviewed Time Spent With Patient Time with patient: less than 15 minutes Quality VTE Deep Vein Thrombosis/Pulmonary Embolism Present on Admission: No
[2020-06-11] MEDS: diazePAM 5 MG TABLET PO (10:05)
--- NOTE | 2020-06-11 10:22 | PM.PN.1 ---
Subjective Subjective Date Patient Seen: 06/11/20 Interval history: Wen Bender is a 74-year-old female with no significant past medical history who presented to the ED after sustaining accidental cat bite with left arm pain, decreased range of motion and purulent cellulitis. The patient is resting in bed comfortably. Her left arm cellulitis is improving and erythema and warmth retracting within previously outlined margins. Continues to have significant tenderness to palpation around area of cat bite with slight induration/fluctuance. MRI ordered yesterday and only humerus was able to be completed due to claustrophobia. For MRI of forearm today and will premedicate earlier with Valium for claustrophobia. She continues to have good range of motion. She endorses mild constipation and would like to try suppository this afternoon. Continue home stool softener and as needed bowel meds. She has no other complaints and denies headache, cough, shortness of breath, chest pain, abdominal pain, nausea, vomiting, fever, chills, dysuria. Continue to rest her left arm, frequently ice and elevate. She is voiding without difficulty. She is up ambulating without assistance. Exam Vital Signs (past 8 hours): - 06/11/20 04:20 06/11/20 08:11 06/11/20 08:41 Temperature 98.4 F 97.8 F Pulse Rate 70 82 Respiratory Rate 16 18 Blood Pressure 123/75 130/70 Pulse Oximetry 100 99 100 Oxygen Delivery Method Room Air Oxygen Flow Rate 0 Narrative Exam Narrative: General: Older female lying in bed and in no acute distress, well-developed, well-nourished, highly anxious but otherwise appropriately interactive. HEENT: Normocephalic, atraumatic. External ears without defect. Pupils equal, round, and reactive to light. Anicteric sclerae, moist conjunctivae, and no lid lag. Oropharynx free of erythema and cobble stoning with moist mucosa. Neck: Supple with full range of motion. No jugular venous distension. No lymphadenopathy or thyromegaly. Cardiovascular: Regular rate and rhythm without murmurs, rubs, or gallops appreciated. Pulmonary: Clear to auscultation bilaterally without crackles, wheezes, or rhonchi. Normal respiratory effort with no use of accessory muscles. Abdomen: Soft, bowel sounds present, nontender, nondistended. No hepatosplenomegaly or masses appreciated. Extremities: No clubbing, cyanosis, or edema of other extremities. Left arm cellulitis with warmth, erythema and edema that is retracting within previously outlined margins. Two puncture wounds at posterior medial forearm with significant tenderness to palpation and slight induration/fluctuance. Scratch on left side of neck that does not appear infected. Normal range of motion of left arm. No pain out of proportion to exam or with passive and active range of motion. Skin: Normal temperature, turgor, and texture; no rash, ulcers, or subcutaneous nodules appreciated. Neurological: Cranial nerves grossly intact. Psychiatric: Mildly anxious mood and affect. Alert and oriented to person, place, and time. Objective Labs Result Diagrams: 06/11/20 05:22 06/11/20 05:22 Labs: Laboratory Results - last 24 hr 06/11/20 06/11/20 06/11/20 05:22 05:22 05:22 WBC 5.8 RBC 3.75 L Hgb 11.9 L Hct 35.6 L MCV 94.9 MCH 31.7 MCHC 33.4 RDW 13.1 Plt Count 145 L Neut % (Auto) 59.4 Lymph % (Auto) 26.5 [place] % (Auto) 9.9 Eos % (Auto) 3.7 Baso % (Auto) 0.5 Neut # (Auto) 3400 Lymph # (Auto) 1500 [place] # (Auto) 600 Eos # (Auto) 200 Baso # (Auto) 0 Sodium 139 Potassium 4.5 Chloride 112 H Carbon Dioxide 25 BUN 15 Creatinine 0.64 Estimated GFR > 60.0 BUN/Creatinine Ratio 23.4 H Glucose 113 H Calcium 8.6 Magnesium 1.9 Procalcitonin 0.08 Assessment & Plan Assessment & Plan narrative: Wen Bender is a 74-year-old female with no significant past medical history who presented to the ED after sustaining accidental cat bite with left arm pain, decreased range of motion and purulent cellulitis. 1. Acute left arm cellulitis, secondary to cat bite, present on admission. Active. -Patient presented with left arm pain, decreased range of motion and cellulitis after she sustained an accidental cat bite. -Initial WBC 13.3 and normalized now 8.7. Initial procalcitonin negative at 0.17 and trending down. Continue to monitor WBC daily. -Initial wound cultures preliminarily growing gram-negative bacilli with identification and sensitivities pending. Blood cultures x2 have no growth to date. -Left arm x-ray did not demonstrate any no forearm fracture or dislocation, radiopaque foreign body or subcutaneous gas. MRI of the humerus with and without contrast demonstrated extensive cellulitis without abscess, fluid collection or osteomyelitis. Plan for MRI of forearm with and without contrast today. Patient has significant claustrophobia and will premedicate with Valium 5 mg p.o. x1. -Continue Augmentin twice daily and doxycycline 100 mg twice daily to treat pasteurella, Bartonella henselae and other Gram-negative organisms. -Consulted orthopedic surgery, Dr. Weiner, and we appreciate his time and recommendations. Placed patient NPO for possible I&D depending on MRI findings. -Continue supportive care with rest and limits patient of movement, frequent icing, elevation with hylton sling, and symptom control with antiemetics and pain medications. 2. Acute on chronic constipation, present on admission. Stable. -Patient feels constipated due to narcotic received in ED and typically has a bowel movement daily. -Continue home stool softener with Colace 100 mg twice daily. Ordered bisacodyl suppository daily as needed and MiraLax 17 g daily as needed for constipation. Code Status: Full code VTE prophylaxis: Enoxaparin, SCDs Disposition: Patient likely to discharge home in 1-2 days once infection improving. Quality VTE Deep Vein Thrombosis/Pulmonary Embolism Present on Admission: No
--- NOTE | 2020-06-11 10:49 | PC.NURSE ---
Day shift note: Patient off floor to MRI via WC, premedicated prior to diagnostic. While in room, resting in bed with LUE elevated and secured with ice packs. Ambulating in room, OOB to BR independently. States feels a lot stronger than previous day. NPO until MRI results. Calls appropriately for staff assist.
--- NOTE | 2020-06-11 12:49 | DI.MRI.S_ITS ---
PROCEDURE: MR FOREARM LT WO/W CON INDICATIONS: Left forearm cellulitis with possible abscess TECHNIQUE: Noncontrast coronal T1 spin echo and STIR, sagittal T1 spin echo with fat saturation and STIR, axial T1 spin echo and T2 fast spin echo with fat saturation. After the administration of contrast, axial/sagittal/coronal T1 spin echo with fat saturation through the left forearm. COMPARISON: [facility], CR, XR FOREARM LT 2V, 06/09/2020, 18:18. FINDINGS: Image quality: Excellent. Bones: The visualized bone marrow demonstrates normal signal on all sequences. The overlying cortex appears intact. No abnormal intraosseous enhancement. Soft tissues: No soft tissue masses are visualized. The scanned muscles demonstrate normal overall bulk and internal signal. In the subcutaneous tissues along the dorsal proximal forearm continued to the elbow, there is increased T2 signal interspersed in the fat consistent with edema/inflammation. The fluid is more focally collected along the soft tissues adjacent to the olecranon. IMPRESSION: Edema/inflammation of the proximal dorsal left forearm, consistent with cellulitis. The fluid collects somewhat more focally adjacent to the olecranon which could represent an enlarged/inflamed olecranon bursa versus phlegmonous changes. Dictated by: Johnathan Gonzalez M.D. on 06/11/2020 at 12:24 Approved by: Johnathan Gonzalez M.D. on 06/11/2020 at 12:30
[2020-06-11] MEDS: HYDROCODONE/ACET 5/325 TABLET 1 TAB PO ×2 (13:15→20:58)
[2020-06-11] MEDS: polyethylene glycoL 3350 17 GM POWD.PACK PO (15:35)
[2020-06-11] MEDS: MELATONIN 3 MG TABLET 9 MG PO (20:55)
[2020-06-12] VITALS (19 sets, daily range): BP systolic 110–156; BP diastolic 50–86; PULSE 65–93; RESP 11–19; TEMP 36.4–37.3; O2SAT 95–100
[2020-06-12 05:36] LABS: Add Manual Diff / Slide Review NO; Basophils Absolute Auto 0 /uL (0-100); Basophils Percent Auto 0.8 % (0-2); Eosinophils Absolute Auto 100 /uL (0-450); Eosinophils Percent Auto 2.4 % (2-4); Hematocrit 36.9 % (36-46); Hemoglobin 12.5 g/dL (12.0-16.0); Lymphocytes Absolute Auto 1800 /uL (1100-4500); Lymphocytes Percent Auto 29.8 % (25-40); Mean Corpuscular HGB Conc 33.8 % (30-36); Mean Corpuscular Hemoglobin 31.8 PG (26-34); Mean Corpuscular Volume 94.1 fL (80-100); Monocytes Absolute Auto 600 /uL (0-900); Monocytes Percent Auto 10.9 % (3-14); Neutrophils Absolute Auto 3300 /uL (1500-7000); Neutrophils Percent Auto 56.1 % (50-75); Platelet Count 182 X10^3/uL (150-400); Red Blood Cell Count 3.93 X10^6/uL (4.0-5.2); Red Cell Distribution Width 13.2 % (11.6-14.8)
[2020-06-12 05:44] LABS: BUN Creatinine Ratio 17.4 (6-22); Blood Urea Nitrogen 12 mg/dL (7-17); Calcium 9.2 mg/dL (8.4-10.2); Carbon Dioxide 28 mmol/L (22-32); Chloride 106 mmol/L (98-107); Estimated Glomerular Filt Rate > 60.0 mL/min (>60); Glucose 111 mg/dL (80-110); HEMOLYSIS < 15 (0-50); Potassium 4.3 mmol/L (3.4-5.1); Sodium 137 mmol/L (137-145)
[2020-06-12 05:58] LABS: Procalcitonin < 0.05 ng/mL (<0.5)
[2020-06-12] MEDS: AMOXICILLIN/CLAV 875/125 MG 1 TAB PO ×2 (08:19→20:38)
[2020-06-12] MEDS: DOXYCYCLINE HYCLATE 100 MG TABLET PO (08:19)
[2020-06-12] MEDS: ONDANSETRON 4 MG/2 ML INJ IV ×3 (09:58→18:40)
--- NOTE | 2020-06-12 10:12 | P.PN_ITS ---
Subjective Subjective Date Patient Seen: 06/12/20 Time Patient Seen: 10:12 Interval history: Decreasing erythema and fullness at antecubital fossa, overall decreasing erythema to arm, however increased fluctuance and swelling at the puncture steve from cat bite - concnerning for local abscess formation. Exam Vital Signs (past 8 hours): - 06/12/20 03:40 06/12/20 07:36 06/12/20 07:40 Temperature 98.1 F 98.4 F Pulse Rate 78 83 Respiratory Rate 16 19 Blood Pressure 134/70 135/80 Pulse Oximetry 98 99 99 Oxygen Delivery Method Room Air Oxygen Flow Rate 0 Narrative Exam Narrative: Fluctaunce and swelling at the puncture steve, decreased ertyhema in the rest of the arm, resolving antecubital fossa swelling and erythema - mild TTP. TTP at the puncture sites. Objective Labs Result Diagrams: 06/12/20 05:11 06/12/20 05:11 Labs: Laboratory Results - last 24 hr 06/12/20 06/12/20 06/12/20 05:11 05:11 05:11 WBC 6.0 RBC 3.93 L Hgb 12.5 Hct 36.9 MCV 94.1 MCH 31.8 MCHC 33.8 RDW 13.2 Plt Count 182 Neut % (Auto) 56.1 Lymph % (Auto) 29.8 [place] % (Auto) 10.9 Eos % (Auto) 2.4 Baso % (Auto) 0.8 Neut # (Auto) 3300 Lymph # (Auto) 1800 [place] # (Auto) 600 Eos # (Auto) 100 Baso # (Auto) 0 Sodium 137 Potassium 4.3 Chloride 106 Carbon Dioxide 28 BUN 12 Creatinine 0.69 Estimated GFR > 60.0 BUN/Creatinine Ratio 17.4 Glucose 111 H Calcium 9.2 Procalcitonin < 0.05 Assessment & Plan Assessment & Plan narrative: Patient is a 74 yo F who is several days out from a cat bite to her left forearm. She has been treated with augmentin and doxy. She has had improving symptoms and swelling until this morning where she has increased fluctuance and pain at the puncture sites, the remained of the arm appears to be improving still. Plan for I&D of the cat bite in the OR today. - NPO - OCTOR for right forearm I&D - continue augmentin and doxy Time Spent With Patient Time with patient: less than 15 minutes Quality VTE Deep Vein Thrombosis/Pulmonary Embolism Present on Admission: No
--- NOTE | 2020-06-12 10:33 | P.PN_ITS ---
Subjective Subjective Date Patient Seen: 06/12/20 Interval history: Wen Bender is a 74-year-old female with no significant past medical history who presented to the ED after sustaining accidental cat bite with left arm pain, decreased range of motion and purulent cellulitis. The patient is resting in bed comfortably. Her left arm cellulitis continues to improve overall with retracting erythema, edema and warmth within previous outlined margins. Patient continues to have erythematous, indurated and slightly fluctuant area that is significantly tender to touch adjacent to cat bi te puncture wound that appears to likely need incision and drainage. She reports feels like this area is ?going to bust?. Patient has been NPO since midnight and orthopedic surgery plans to take her to OR in the next hour. She has no complaints and denies headache, shortness of breath, chest pain, abdominal pain, nausea, vomiting, fever, chills, dysuria. Continue to rest her left arm, frequently ice and elevate. She is voiding without difficulty. She is up ambulating without assistance. Exam Vital Signs (past 8 hours): - 06/12/20 03:40 06/12/20 07:36 06/12/20 07:40 Temperature 98.1 F 98.4 F Pulse Rate 78 83 Respiratory Rate 16 19 Blood Pressure 134/70 135/80 Pulse Oximetry 98 99 99 Oxygen Delivery Method Room Air Oxygen Flow Rate 0 Narrative Exam Narrative: General: Older female lying in bed and in no acute distress, well-developed, well-nourished, mildly anxious but otherwise appropriately interactive. HEENT: Normocephalic, atraumatic. External ears without defect. Pupils equal, round, and reactive to light. Anicteric sclerae, moist conjunctivae, and no lid lag. Oropharynx free of erythema and cobble stoning with moist mucosa. Neck: Supple with full range of motion. No jugular venous distension. No lymphadenopathy or thyromegaly. Cardiovascular: Regular rate and rhythm without murmurs, rubs, or gallops appreciated. Pulmonary: Clear to auscultation bilaterally without crackles, wheezes, or rhonchi. Normal respiratory effort with no use of accessory muscles. Abdomen: Soft, bowel sounds present, nontender, nondistended. No hepatosplenomegaly or masses appreciated. Extremities: No clubbing, cyanosis, or edema of other extremities. Left arm cellulitis with warmth, erythema and edema that is retracting within previously outlined margins. Two puncture wounds at posterior medial forearm with significant tenderness to palpation and induration/fluctuance. Scratch on left side of neck that does not appear infected. Normal range of motion of left arm. No pain out of proportion to exam or with passive and active range of motion. Skin: Normal temperature, turgor, and texture; no rash, ulcers, or subcutaneous nodules appreciated. Neurological: Cranial nerves grossly intact. Psychiatric: Mildly anxious mood and affect. Alert and oriented to person, place, and time. Objective Labs Result Diagrams: 06/12/20 05:11 06/12/20 05:11 Labs: Laboratory Results - last 24 hr 06/12/20 06/12/20 06/12/20 05:11 05:11 05:11 WBC 6.0 RBC 3.93 L Hgb 12.5 Hct 36.9 MCV 94.1 MCH 31.8 MCHC 33.8 RDW 13.2 Plt Count 182 Neut % (Auto) 56.1 Lymph % (Auto) 29.8 [place] % (Auto) 10.9 Eos % (Auto) 2.4 Baso % (Auto) 0.8 Neut # (Auto) 3300 Lymph # (Auto) 1800 [place] # (Auto) 600 Eos # (Auto) 100 Baso # (Auto) 0 Sodium 137 Potassium 4.3 Chloride 106 Carbon Dioxide 28 BUN 12 Creatinine 0.69 Estimated GFR > 60.0 BUN/Creatinine Ratio 17.4 Glucose 111 H Calcium 9.2 Procalcitonin < 0.05 Assessment & Plan Assessment & Plan narrative: Wen Bender is a 74-year-old female with no significant past medical history who presented to the ED after sustaining accidental cat bite with left arm pain, decreased range of motion and purulent cellulitis. 1. Acute left arm cellulitis, secondary to cat bite, present on admission. Active. -Patient presented with left arm pain, decreased range of motion and cellulitis after she sustained an accidental cat bite. -Initial WBC 13.3 and normalized now 8.7. Initial procalcitonin negative at 0.17 and trending down. Continue to monitor WBC daily. -Initial wound cultures preliminarily growing gram-negative bacilli with iden tification and sensitivities pending. Blood cultures x2 have no growth to date. -Left arm x-ray did not demonstrate any no forearm fracture or dislocation, radiopaque foreign body or subcutaneous gas. MRI of the left humerus and forearm with and without contrast demonstrated extensive cellulitis without abscess, fluid collection or osteomyelitis. -Continue Augmentin twice daily to treat pasteurella growing in wound culture and other gram-positive, gram-negative and anerobes. -Consulted orthopedic surgery, Dr. Weiner, and we appreciate his time and recommendations. Patient has been NPO since midnight and ortho plans to perform plan for I&D today. -Continue supportive care with rest and limits patient of movement, frequent icing, elevation with hylton sling, and symptom control with antiemetics and pain medications. 2. Acute on chronic constipation, present on admission. Acute portion resolved. -Patient endorse constipation due to narcotic received in ED and typically has a bowel movement daily. -Continue home stool softener with Colace 100 mg twice daily. Ordered bisacodyl suppository daily as needed and MiraLax 17 g daily as needed for constipation. Code Status: Full code VTE prophylaxis: Enoxaparin, SCDs Disposition: Patient likely to discharge home in the next 1-2 days. Quality VTE Deep Vein Thrombosis/Pulmonary Embolism Present on Admission: No
--- NOTE | 2020-06-12 10:57 | PM.PREOP ---
Pre-operative Note COVID-19 COVID-19 status: Negative Result date/Date tested (Pos, Neg/Pending): 06/09/20 Interval Note History & Physical reviewed/Exam performed by Physician: Yes Changes to H&P: No H&P completed within 30 days and has changed as indicated here:: Plan for left forearm I&D of cat bite. Worsening fluctuance, swelling, erythema at site.
--- NOTE | 2020-06-12 11:10 | PC.NURSE ---
1100 Pt to OR via w/c by OR personnel for I and D of left forearm.
[2020-06-12] MEDS: LACTATED RINGERS 1,000 ML 42 ML IV (11:20)
[2020-06-12] MEDS: CEFAZOLIN 2 GM/100 ML FROZ.PIGGY IV (11:39)
--- NOTE | 2020-06-12 11:50 | SUR.OPER ---
Supine on padded OR bed, head on pillow, right arm secured on padded arm boards at <90 degrees abduction, left arm on arm table under control of surgeon, legs uncrossed, safety belt at thigh, tape over blanket over lower legs.
--- NOTE | 2020-06-12 12:16 | P.OP_ITS ---
Operative Date/Time/Diagnoses Date of procedure: 06/12/20 Time of procedure: 12:16 Pre-op diagnosis: left forearm cat bite with abscess Post-op diagnosis: same Procedure & Clinicians Procedure: Left forearm irrigation debridement Same procedure as scheduled: Yes Indications: Patient is a 74-year-old female who had a delayed presentation afte r cat bite to left forearm. She was initially treated with Augmentin and had resolution of erythema in the majority perform however at the side of a cat bite itself she remains erythematous and fluctuant. Surgeon: Tony Weiner Anesthesia Type: General Operative Notes Findings: Healthy-appearing fascia. Small amount purulence at the cat bite. Estimated Blood Loss (mL): 20 Tourniquet time (min): 9 Procedure in detail: Patient was met in the preoperative holding area where the site and side of surgery were marked by . Review consent was performed. Risks and benefits of surgery were discussed including the risks of continued infection, need for future surgeries, delayed wound healing, damage to local structures such as vessels and nerves, etc. Patient demonstrates understanding of the risks and benefits and wishes to proceed. Patient was then brought back in the operating room where she was transferred onto the operating room table and induced under general anesthesia. A nonsterile tourniquet was then placed on the left arm and the left upper extremity is then prepped and draped in normal sterile fashion. A surgical time-out was performed verifying the site and side of surgery as well as the name of the patient. The tourniquet was insufflated without using an Esmarch. A 2 cm long incision connecting the cat bite puncture wounds was made in the skin using a 15. Blade. A forcep was then used for blunt dissection at this point a small amount of purulence was encountered this was sent for culture. This was then washed away and further dissection down to the fascial layer was performed fascia itself appeared clean and viable I do not appreciate puncture steve through the fascia. Was able to elevate the subcutaneous fat off the fascia circumferentially around for the puncture ariela was enlarged radius. Thoroughly irrigated this entire pocket counting no further purulence. In total I irrigated 6 L of normal saline through a cysto tube into the wound. And using a curette to scrape the fascia. At this point the tourniquet was let down at 9 minutes of time and hemostasis was achieved using electrocautery. I thoroughly aim investigated the fascia another time and not appreciate any shaggy looking fascia or any deep purulence. At this point the proximal and distal portions of the incision were closed using 3 O nylon in her interrupted fashion and the middle section of the incision was left open and packed with half-inch packing tape. 4x4s were then placed followed by a Kerlix and a Coban dressing. Complications: none Post-operative Condition: stable Disposition: PACU Plan for aftercare: Continue Augmentin, daily packing changes to the left forearm wound
--- NOTE | 2020-06-12 12:22 | CM.DPC ---
DCP: continued. Met again with pt during Team Bedside Rounds. Dr. Nuñez explained that Dr. Weiner would be in shortly and that a procedure to drain infection in her arm may be done today. Pt explained that her forearm felt hot and red and like it could burst. A check in now shows that Dr. Weiner arrived shortly after rounds and pt is currently in the OR undergoing procedure. DCP team to continue to follow.
[2020-06-12] MEDS: fentaNYL 100 MCG/2 ML INJ IV (12:25)
[2020-06-12] MEDS: HYDROMORPHONE 2 MG INJ IV ×2 (12:25→12:39)
--- NOTE | 2020-06-12 13:18 | PC.NURSE ---
Pt back to room from PACU post I and D. Pt denies pain or shortness of breath. Pt does report some nausea with transport but states she feels like it is getting better. Pt denies needs at this time and agrees to call for assistance as needed.
[2020-06-12] MEDS: ONDANSETRON 4 MG ODT PO (17:39)
[2020-06-12] MEDS: IBUPROFEN 600 MG TABLET PO (20:37)
[2020-06-12] MEDS: MELATONIN 3 MG TABLET 9 MG PO (20:38)
[2020-06-12] MEDS: SODIUM CHLORIDE 0.9% FLUSH 10 ML IV (20:38)
[2020-06-13] MEDS: HYDROCODONE/ACET 5/325 TABLET 1 TAB PO ×2 (00:18→14:20)
[2020-06-13 05:36] VITALS: BP 136/83; PULSE 78; RESP 16; TEMP 36.2; O2SAT 99
[2020-06-13 06:19] LABS: Add Manual Diff / Slide Review NO; Basophils Absolute Auto 0 /uL (0-100); Basophils Percent Auto 0.4 % (0-2); Eosinophils Absolute Auto 0 /uL (0-450); Hemoglobin 13.7 g/dL (12.0-16.0); Lymphocytes Absolute Auto 1100 /uL (1100-4500); Lymphocytes Percent Auto 9.9 % (25-40); Mean Corpuscular HGB Conc 33.4 % (30-36); Mean Corpuscular Hemoglobin 31.8 PG (26-34); Mean Corpuscular Volume 95.3 fL (80-100); Monocytes Absolute Auto 600 /uL (0-900); Monocytes Percent Auto 5.8 % (3-14); Neutrophils Absolute Auto 9000 /uL (1500-7000); Neutrophils Percent Auto 83.9 % (50-75); Platelet Count 202 X10^3/uL (150-400); Red Blood Cell Count 4.31 X10^6/uL (4.0-5.2); Red Cell Distribution Width 12.8 % (11.6-14.8); White Blood Cell Count 10.7 X10^3/uL (4.5-11.0)
[2020-06-13 06:29] LABS: BUN Creatinine Ratio 21.1 (6-22); Blood Urea Nitrogen 15 mg/dL (7-17); Calcium 9.5 mg/dL (8.4-10.2); Carbon Dioxide 27 mmol/L (22-32); Chloride 101 mmol/L (98-107); Estimated Glomerular Filt Rate > 60.0 mL/min (>60); Glucose 125 mg/dL (80-110); HEMOLYSIS < 15 (0-50); Magnesium 2.1 mg/dL (1.6-2.3); Potassium 4.7 mmol/L (3.4-5.1); Sodium 135 mmol/L (137-145)
[2020-06-13 06:42] LABS: Procalcitonin 0.06 ng/mL (<0.5)
--- NOTE | 2020-06-13 08:34 | P.DS_ITS ---
History of Present Illness History of Present Illness Date Patient Seen: 06/13/20 Time Patient Seen: 08:34 Chief complaint: lt hand infection from cat bite Narrative: As per LENORA Doan: Yulia Carver is a 74 y.o. female visiting [facility] with no stated medical conditions at [place] was packing up when a neighbor's dog approached her cat. She lives in [place]. She went out, picked up her cat, and with the cat being upset at the dog, bit her in the left lower arm yesterday. She did not think anything of it. She soaked it in warm water and said that pus came out of one of the puncture sites. When she woke up this morning, her arm was very swollen. She has difficulty flexing her wrist and is concerned about re ddening in her anticubital area. She became nauseous and was requesting something upon presentation to the ED. She denies a fever, but has had chills and was complaining of being cold during my visit with her. Denies shortness of breath, chest pain, dysurea, diarrhea or constipation. In the ED, Dr. Weiner was consulted and he recommended the patient receive both Zosyn and Augmentin. She was administered a Tdap vaccination, and administered both IV Zosyn and oral Augmentin She is mildly febrile at 99.7, blood pressure 133/73, heart rate 93, respiratory rate 17, oxygen saturation 93% on room air, she weighs 68 kg, and has a BMI of 25. She has a mildly elevated white count of 13.3, with a left shift, sodium 135, potassium 3.5, chloride 101, CO2 26, creatinine 0.75, GFR screen to 60, lactate is negative at 0.6, liver enzymes are within normal limits, procalcitonin is negative at 0.17, and COVID-19 is negative. Discharge Providers Provider Date of admission: 06/09/20 20:23 Discharge Date: 06/13/20 Consults: 06/09/20 20:30 Consult to Physician Routine Comment: Consulting Provider: Tony Weiner Reason for consultation: Cellulitis Has provider been notified: Yes Discharge provider: Melvin Joseph DO Summary Hospital Course Discharge Diagnosis: Please see hospital course by problem list noted below. Hospital Course: Wen Bender is a 74-year-old female with no significant past medical history who presented to the ED after sustaining accidental cat bite with left arm pain, decreased range of motion and purulent cellulitis. 1. Acute left arm cellulitis, secondary to cat bite, present on admission. Active. -Patient presented with left arm pain, decreased range of motion and cellulitis after she sustained an accidental cat bite, however with mild persistent swelling despite antibiotics. Taken to OR with orthopedics on 06/12 with then improvement. Will continue on outpatient augmentin and daily packing changes per orthopedic surgery. Gave an additional week of antibiotics. To follow up with orthopedics this Saturday. -Initial WBC 13.3 and normalized after therapies. Initial procalcitonin negative at 0.17 and trended down. -Initial wound cultures preliminarily growing gram-negative bacilli with pasteurella. Blood cultures x2 have no growth to date. -Left arm x-ray did not demonstrate any no forearm fracture or dislocation, radiopaque foreign body or subcutaneous gas. MRI of the left humerus and forearm with and without contrast demonstrated extensive cellulitis without a bscess, fluid collection or osteomyelitis. -Continue Augmentin twice daily to treat pasteurella growing in wound culture and other gram-positive, gram-negative and anerobes as noted above. -Consulted orthopedic surgery, Dr. Weiner, and we appreciate his time and recommendations. -Continue symptom control with pain medications, anti-nauseal medications, and antibiotics. 2. Acute on chronic constipation, present on admission. Acute portion resolved. -Patient endorse constipation due to narcotic received in ED and typically has a bowel movement daily. -Continue home stool softener with Colace 100 mg twice daily. Ordered bisacodyl suppository daily as needed and MiraLax 17 g daily as needed for constipation. Dispo: discharged home. Status at Discharge Cognitive/behavioral status at discharge: oriented Functional status at discharge: independent ambulation Time Spent with Patient Time spent: Greater than 30 minutes Exam Vital Signs (past 8 hours): - 06/13/20 05:36 Temperature 97.2 F L Pulse Rate 78 Respiratory Rate 16 Blood Pressure 136/83 Pulse Oximetry 99 Oxygen Delivery Method Room Air Oxygen Flow Rate 0 Narrative Exam Narrative: General: Older female lying in bed and in no acute distress, well-developed, well-nourished, mildly anxious but otherwise appropriately interactive. HEENT: Normocephalic, atraumatic. External ears without defect. Pupils equal, round, and reactive to light. Anicteric sclerae, moist conjunctivae, and no lid lag. Oropharynx free of erythema and cobble stoning with moist mucosa. Neck: Supple with full range of motion. No jugular venous distension. No lymphadenopathy or thyromegaly. Cardiovascular: Regular rate and rhythm without murmurs, rubs, or gallops appreciated. Pulmonary: Clear to auscultation bilaterally without crackles, wheezes, or rhonchi. Normal respiratory effort with no use of accessory muscles. Abdomen: Soft, bowel sounds present, nontender, nondistended. No hepatosplenomegaly or masses appreciated. Extremities: No clubbing, cyanosis, or edema of other extremities. L arm with mild swelling. Mild cellulitis without tenderness on posterior aspect, improved swelling in antecubital fossa. Skin: Normal temperature, turgor, and texture; no rash, ulcers, or subcutaneous nodules appreciated. Neurological: Cranial nerves grossly intact. Psychiatric: Mildly anxious mood and affect. Alert and oriented to person, place, and time. Objective Labs Result Diagrams: 06/13/20 05:26 06/13/20 05:26 Labs: Laboratory Results - last 24 hr 06/13/20 06/13/20 06/13/20 05:26 05:26 05:26 WBC 10.7 D RBC 4.31 Hgb 13.7 Hct 41.0 MCV 95.3 MCH 31.8 MCHC 33.4 RDW 12.8 Plt Count 202 Neut % (Auto) 83.9 H D Lymph % (Auto) 9.9 L [place] % (Auto) 5.8 Eos % (Auto) 0.0 L Baso % (Auto) 0.4 Neut # (Auto) 9000 H Lymph # (Auto) 1100 [place] # (Auto) 600 Eos # (Auto) 0 Baso # (Auto) 0 Sodium 135 L Potassium 4.7 Chloride 101 Carbon Dioxide 27 BUN 15 Creatinine 0.71 Estimated GFR > 60.0 BUN/Creatinine Ratio 21.1 Glucose 125 H Calcium 9.5 Magnesium 2.1 Procalcitonin 0.06 Discharge Plan Discharge Plan Patient Disposition: Home Discharge comment: You were admitted to the hospital after a cat bite led to an infection of your arm. you improved with antibiotics and did have a drainage procedure with orthopedic surgery. Continue dressing changes as instructed by your surgeon, and complete your course of antibiotic therapy at home. You were also given a few doses of pain medicines and antinausea medications as well. Discharge orders & Medications Prescriptions: New hydrocodone-acetaminophen 5-325 mg Tablet 1 tab PO Q4HR PRN (Reason: Pain, Moderate (4-6)) 7 Days Qty: 10 RF: 0 amoxicillin-pot clavulanate [Augmentin] 875-125 mg Tablet 1 tab PO BID 7 Days Qty: 14 RF: 0 ondansetron 4 mg Tablet,Disintegrating 4 mg PO Q8HR PRN (Reason: Nausea And Vomiting) 14 Days Qty: 30 RF: 0 No Action No Known Home Medications RF: 0 Follow up/Referrals: Tony Weiner MD [Physician] - 06/17/20 3:00 pm (APPT:06/17 @ 3:00 follow up from cat bite s/p procedure 06/[address] weiner please arrive 20 minutes prior to scheduled appointment @ [facility] located @ [facility] [place] ) Diet/Activity/Treatments Diet: Diet as Tolerated Activity: As tolerated Skin/Wound/Dressing Care Dressing: Daily wound dressing changes. Visit Report/Discharge Packet Instructions: DI for Heart Failure, DI for Prescription Opioid Use, DI for Incision and Drainage of a Joint, DI for Incision and Drainage, [facility]: Wound Care Stand Alone Forms: Surgery Discharge Visit Report Forms: Congestive Heart Failure, Patient Portal/API, Stroke Signs & Symptoms Discharges patient from system. Discharge Date/Time: 06/13/20 14:47 Quality VTE Deep Vein Thrombosis/Pulmonary Embolism Present on Admission: No
[2020-06-13] MEDS: DOCUSATE 100 MG CAPSULE PO (08:58)
[2020-06-13] MEDS: IBUPROFEN 600 MG TABLET PO (08:58)
[2020-06-13] MEDS: AMOXICILLIN/CLAV 875/125 MG 1 TAB PO (08:58)
[2020-06-13] MEDS: ENOXAPARIN 40 MG/0.4 ML SYRINGE SUBCUT (08:58)
[2020-06-13 09:00] VITALS: BP 132/70; PULSE 72; RESP 16; TEMP 36.6; O2SAT 99
[2020-06-13] MEDS: SODIUM CHLORIDE 0.9% FLUSH 10 ML IV (09:43)
--- NOTE | 2020-06-13 11:04 | CM.DPC ---
DCP Cont: Discussed patient during team rounds. Plan is for her to go home on oral antibiotics. P: Patient will be discharged home on oral antibiotics with no needs. Denise Coffey RN/[employer].
[2020-06-13] MEDS: ACETAMINOPHEN 325 MG TABLET 650 MG PO (13:24)
--- NOTE | 2020-06-13 14:39 | PC.NURSE ---
All discharge instructions given to patient. Discharge teaching to patient and regarding medications, wound incision and dressing changes, follow up appt's, signs and symptoms of infection. Patient and verbalized understanding of information. Patient left hospital via wheelchair and private car w/ . All prescriptions were electronically submitted to [facility] in [place].
== END 2020-06-13 14:47 | disposition home or self-care (01) | DRG 581 ==
LOC: ED 17:59 → AC 20:24
PROVIDERS: Internal Medicine; Orthopaedic Surgery Adult Reconstructive Orthopaedic Surgery; Admitting Provider Nurse Practitioner Family; Emergency Provider Nurse Practitioner Family; Referring Provider Nurse Practitioner Family; Visit Provider Nurse Practitioner Family
PROC: 0JDH0ZZ Extraction of Left Lower Arm Subcutaneous Tissue and Fascia, Open Approach (ICD-10-PCS; principal; 2020-06-12 11:30)
DX: L03.114 Cellulitis of left upper limb (principal); S50.872A Other superficial bite of left forearm, initial encounter; K59.09 Other constipation; W55.01XA Bitten by cat, initial encounter; Z11.59 Encounter for screening for other viral diseases; Z23 Encounter for immunization
CPT/HCPCS: 36415; 36592; 73090; 73218; 73220; 80048; 80053; 83605; 83735; 84145; 85025; 87040; 87070; 87075; 87077; 87186; 87205; 87635; 90471; 96361; 96365; 96375; 99284; 90715; A9579; J0690; J1170; J1650; J1885; J2405; J2543; J2704; J3010